=== PATIENT | male | born 1995 | race Two or more races ===

== ENCOUNTER 2022-04-06 10:19 | Emergency (ER) | payer MEDICAID ==
[~2022-04-06] VITALS: Ht 195.6 cm; Wt 74.3 kg
[2022-04-06 13:53] VITALS: BP 123/100
[2022-04-06] MEDS ORDERED: IBUP600T28 PO (14:00)
[2022-04-06] MEDS ORDERED: CEPH-510 PO (14:00)
[2022-04-06] MEDS ORDERED: TETANUS-DIPTH-ACEL PERTUSSIS 0.5ML SYR Tdap IM ONE (14:15)
[2022-04-06] MEDS ORDERED: cefTRIAXone SOD 1,000 MG VL IM ONE (14:15)
[2022-04-06] MEDS ORDERED: LIDOCAINE 1% HCL (LOCAL ANESTH.) INJ 20ML MDV IJ ONE (14:15)
== END 2022-04-06 16:27 | disposition home or self-care (01) ==
LOC: ER 10:19
DX: S62.632B Displaced fracture of distal phalanx of right middle finger, initial encounter for open fracture (principal); Z79.1 Long term (current) use of non-steroidal anti-inflammatories (NSAID); Z79.899 Other long term (current) drug therapy; W23.0XXA Caught, crushed, jammed, or pinched between moving objects, initial encounter; Y93.89 Activity, other specified; Y92.89 Other specified places as the place of occurrence of the external cause; Y99.8 Other external cause status
CPT/HCPCS: 29130; 73130; 90471; 90715; 96372; 99284; J0696; J2001

== ENCOUNTER 2022-10-10 20:56 | Emergency (ER) | payer MEDICAID ==
[~2022-10-10 20:56] MED LIST: CEPH-510 PO; IBUP1TAB5 PO
== END 2022-10-10 23:02 | disposition left against medical advice (07) ==
LOC: ER 20:56
DX: M79.672 Pain in left foot (principal); Z53.21 Procedure and treatment not carried out due to patient leaving prior to being seen by health care provider

== ENCOUNTER 2022-10-11 06:03 | Emergency (ER) | payer MEDICAID ==
[~2022-10-11] VITALS: Ht 195.6 cm; Wt 75.4 kg
[2022-10-11 06:58] VITALS: BP 109/61; PULSE 55; RESP 16; TEMP 98; O2SAT 96
[2022-10-11] MEDS ORDERED: TETANUS-DIPTH-ACEL PERTUSSIS 0.5ML SYR Tdap IM ONE (07:30)
== END 2022-10-11 07:37 | disposition home or self-care (01) ==
LOC: ER 06:03
DX: S91.332A Puncture wound without foreign body, left foot, initial encounter (principal); Z79.1 Long term (current) use of non-steroidal anti-inflammatories (NSAID); Z79.899 Other long term (current) drug therapy; W22.8XXA Striking against or struck by other objects, initial encounter; Y93.89 Activity, other specified; Y92.89 Other specified places as the place of occurrence of the external cause; Y99.8 Other external cause status
CPT/HCPCS: 90471; 90715

== ENCOUNTER 2022-11-24 08:46 | Emergency (ER) | payer MEDICAID ==
[~2022-11-24] VITALS: Ht 182.9 cm; Wt 77.5 kg
[2022-11-24 09:11] VITALS: BP 114/57; PULSE 61; RESP 16; TEMP 97.5; O2SAT 100
[2022-11-24] MEDS ORDERED: KETOROLAC TROMETH 60MG/2ML VIAL IM ONE (09:15)
[2022-11-24] MEDS ORDERED: IBUP-1455 PO (10:11)
[2022-11-24] MEDS ORDERED: ACET300T51 PO (10:11)
== END 2022-11-24 10:18 | disposition home or self-care (01) ==
LOC: ER 08:46
DX: S92.511A Displaced fracture of proximal phalanx of right lesser toe(s), initial encounter for closed fracture (principal); Z79.1 Long term (current) use of non-steroidal anti-inflammatories (NSAID); Z79.899 Other long term (current) drug therapy; W22.8XXA Striking against or struck by other objects, initial encounter; Y93.89 Activity, other specified; Y92.098 Other place in other non-institutional residence as the place of occurrence of the external cause; Y99.8 Other external cause status
CPT/HCPCS: 73630; 96372; 99283; J1885